=== PATIENT | female | born 1970 | race Caucasian/White ===

== ENCOUNTER 2019-10-09 16:38 | Emergency (ER) | payer MEDICAID ==
[~2019-10-09] VITALS: Ht 165.1 cm; Wt 70.0 kg
[2019-10-09 16:48] VITALS: BP 146/92
[2019-10-09] MEDS ORDERED: HYDROCODONE/ACETAMINOPHEN 5/325MG TABLET PO ONE (19:30)
[2019-10-09] MEDS ORDERED: FAMOTIDINE 20MG TABLET PO ONE (19:30)
[2019-10-09] MEDS ORDERED: ONDANSETRON 4MG ODT PO ONE (19:30)
== END 2019-10-09 22:03 | disposition home or self-care (01) ==
LOC: ER 16:38
DX: K82.4 Cholesterolosis of gallbladder (principal); E78.00 Pure hypercholesterolemia, unspecified; E11.9 Type 2 diabetes mellitus without complications
CPT/HCPCS: 76705; 81025; 93005; 99284; Q0162